=== PATIENT | female | born 1960 | race African-American/Black ===

== ENCOUNTER 2022-08-18 20:57 | Inpatient (IN) | payer BC ==
[2022-08-19] MEDS ORDERED: Acetaminophen 325 MG TAB PO PRN (00:28)
[2022-08-19] MEDS ORDERED: Ondansetron ODT 4 MG TAB PO PRN (00:28)
[2022-08-19] MEDS ORDERED: Nitroglycerin 0.4 MG TAB (25 Tab Bottle) SL PRN (00:28)
[2022-08-19] MEDS ORDERED: Senokot S 8.6-50 MG TAB PO PRN (00:28)
[2022-08-19] MEDS ORDERED: Ondansetron PF 4 MG/2 ML Vial IVP PRN (00:28)
[2022-08-19] MEDS ORDERED: Famotidine 20 MG TAB PO PRN (00:28)
[2022-08-19 01:07] LABS: #Eosinphils 0.2 thou/uL (0.0-0.7); #Lymphocytes 2.3 thou/uL (1.20-3.40); #Monocytes 0.4 thou/uL (0.11-0.59); #Neutrophils 1.8 thou/uL (1.40-6.50); %Basophils 0.8 % (0.0-1.0); %Lymphocytes 47.7 % (21.0-51.0); %Monocytes 8.4 % (0.0-10.0); Hemoglobin 12.4 g/dL (12.0-16.0); Mean Corpuscular Hemoglobin 32.4 pg (27.0-31.0); Mean Corpuscular Volume 95.3 fl (78.0-98.0); Mean Platelet Volume 7.7 fL (7.4-10.4); Platelet Count 207 10x3/uL (130-400); RBC Distribution Width 12.3 % (11.5-14.5); Red Blood Cell (RBC) Count 3.83 mill/uL (4.20-5.40); White Blood Cell (WBC) Count 4.7 10x3/uL (4.8-10.8)
[2022-08-19 01:19] LABS: ALT (SGPT) 18 U/L (8-55); AST (SGOT) 41 U/L (5-34); Albumin 3.7 g/dL (3.4-4.8); Alkaline Phosphatase 68 U/L (40-110); Anion Gap 11 mmol/L (10-20); BUN (Urea Nitrogen) 14 mg/dL (9.8-20.1); Bilirubin, Total 0.3 mg/dL (0.2-1.2); Calc. Creatinine Clearance 81 mL/min (70-130); Carbon Dioxide 31 mmol/L (23-31); Chloride 104 mmol/L (98-107); Estimated GFR 75; Globulin 2.3 g/dL (2.4-3.5); Glucose 87 mg/dL (80-115); Potassium 3.3 mmol/L (3.5-5.1); Sodium 143 mmol/L (136-145)
[2022-08-19 01:30] LABS: Troponin I 6.195 ng/mL (< 0.028)
[2022-08-19] MEDS ORDERED: Potassium Chloride 20 MEQ TAB PO SCH (02:30)
[2022-08-19] MEDS: Aspirin 81 mg Enteric Coated Tablet PO SCH (09:47)
[2022-08-19] MEDS ORDERED: Communication Order-Pharmacy FS SCH (10:15)
[2022-08-19] MEDS ORDERED: Labetalol HCl 100 MG TAB PO SCH (10:30)
[2022-08-19] MEDS ORDERED: Lisinopril 2.5 MG TAB PO SCH (10:30)
[2022-08-19] MEDS: Labetalol HCl 100 MG TAB PO SCH (20:24)
[2022-08-20 04:28] LABS: #Basophils 0.1 thou/uL (0.0-0.2); #Eosinphils 0.3 thou/uL (0.0-0.7); #Lymphocytes 1.8 thou/uL (1.20-3.40); #Monocytes 0.4 thou/uL (0.11-0.59); #Neutrophils 1.4 thou/uL (1.40-6.50); %Basophils 1.4 % (0.0-1.0); %Eosinophils 7.6 % (0.0-10.0); %Lymphocytes 46.3 % (21.0-51.0); %Monocytes 9.5 % (0.0-10.0); %Neutrophils 35.3 % (42.0-75.0); Hemoglobin 12.5 g/dL (12.0-16.0); Mean Corpuscular HGB CONC 32.1 g/dL (32.0-36.0); Mean Corpuscular Hemoglobin 31.2 pg (27.0-31.0); Mean Corpuscular Volume 97.3 fl (78.0-98.0); Mean Platelet Volume 7.7 fL (7.4-10.4); Platelet Count 205 10x3/uL (130-400); RBC Distribution Width 12.4 % (11.5-14.5); White Blood Cell (WBC) Count 3.8 10x3/uL (4.8-10.8)
[2022-08-20 04:52] LABS: Anion Gap 13 mmol/L (10-20); BUN (Urea Nitrogen) 12 mg/dL (9.8-20.1); Calc. Creatinine Clearance 87 mL/min (70-130); Calcium 9.1 mg/dL (7.8-10.44); Carbon Dioxide 24 mmol/L (23-31); Chloride 108 mmol/L (98-107); Cholesterol 94 mg/dl (< 200 Desired); Estimated GFR 82; Glucose 92 mg/dL (80-115); HDL Cholesterol 47 mg/dL (>60 Neg Risk); LDL Cholesterol, Calculated 36 mg/dL; Potassium 3.9 mmol/L (3.5-5.1); Sodium 141 mmol/L (136-145); Triglycerides 55 mg/dL (Less than 150)
[2022-08-20] MEDS: Labetalol HCl 100 MG TAB PO SCH (05:57)
[2022-08-20] MEDS: Aspirin 81 mg Enteric Coated Tablet PO SCH (05:58)
[2022-08-20] MEDS: Sodium Chloride 0.9% 1,000 ML IV SCH ×2 (05:58→15:15)
[2022-08-20] MEDS ORDERED: Lidocaine 1% (PF) 30 ML VIAL ONE (06:07)
[2022-08-20] MEDS ORDERED: Heparin 10,000 UNITS/ 10 ML VIAL ONE (06:07)
[2022-08-20] MEDS ORDERED: Midazolam HCl 2 mg/2 ml Vial ONE ×2 (06:56→12:45)
[2022-08-20] MEDS ORDERED: fentaNYL 50 mcg/mL 1 mL Vial ONE ×2 (06:56→10:36)
[2022-08-20] MEDS ORDERED: Nitroglycerin 2% Ointment 1 INCH/1 GM Packet ONE (07:41)
[2022-08-20] MEDS ORDERED: Heparin 5,000 UNITS/ML VIAL ONE ×2 (08:34→12:57)
[2022-08-20] MEDS ORDERED: Heparin 25,000 units/D5W 500 ML IVPB SCH (08:45)
[2022-08-20] MEDS ORDERED: Heparin 10,000 UNITS/ 10 ML VIAL SLOW IVP SCH ×3 (08:45)
[2022-08-20] MEDS ORDERED: Heparin 25,000 units/D5W 500 ML IV SCH (08:45)
[2022-08-20] MEDS ORDERED: Lisinopril 2.5 MG TAB PO SCH (09:00)
[2022-08-20] MEDS ORDERED: Iopamidol 370 76% 100 ML VIAL ONE (09:36)
[2022-08-20] MEDS ORDERED: Albumin 5% 500 ML ONE (12:29)
[2022-08-20] MEDS ORDERED: Verapamil 5 MG/2 ML VIAL ONE (12:37)
[2022-08-20] MEDS ORDERED: Fentanyl 250 MCG/5 ML VIAL ONE ×2 (12:45→15:10)
[2022-08-20] MEDS ORDERED: Vecuronium 10 MG VIAL ONE (12:57)
[2022-08-20] MEDS ORDERED: Heparin 30,000 units/30 ml VIAL ONE (12:57)
[2022-08-20] MEDS ORDERED: Cardioplegic Soln 1,000 ML BAG ONE (12:57)
[2022-08-20] MEDS ORDERED: Sodium Bicarb 50 MEQ/50 ML VIAL ONE (12:57)
[2022-08-20] MEDS ORDERED: Dexamethasone 20 MG/5 ML VIAL ONE (12:57)
[2022-08-20] MEDS ORDERED: Vancomycin 1 GM VIAL ONE (12:57)
[2022-08-20] MEDS ORDERED: Thrombin 5000 UNITS/5 ML VIAL ONE (12:57)
[2022-08-20] MEDS ORDERED: Lidocaine 2% PF 100 mg/5 ml Syringe ONE (12:57)
[2022-08-20] MEDS ORDERED: PROPOFOL 200 MG/20 ML VIAL ONE (12:57)
[2022-08-20] MEDS ORDERED: Aminocaproic Acid 5 GM/20 ML VIAL ONE (12:57)
[2022-08-20] MEDS ORDERED: Mannitol 12.5 GM/50 ML ONE (12:57)
[2022-08-20] MEDS ORDERED: Potassium Chloride 60 MEQ/30 ML VIAL ONE (12:57)
[2022-08-20] MEDS ORDERED: Magnesium 5 GM/10 ML VIAL ONE (12:57)
[2022-08-20] MEDS ORDERED: Calcium Chloride 1 GM/10 ML Abboject SYRINGE ONE (12:57)
[2022-08-20] MEDS ORDERED: Protamine Sulfate 250 MG/25 ML VIAL ONE (12:57)
[2022-08-20] MEDS ORDERED: Ondansetron PF 4 MG/2 ML Vial ONE (12:57)
[2022-08-20] MEDS ORDERED: Papaverine 60 MG/2 ML VIAL ONE (12:57)
[2022-08-20] MEDS ORDERED: Nitroglycerin 50 MG/250 ML BOT ONE (12:57)
[2022-08-20] MEDS ORDERED: hydrALAZINE 20 MG/ML VIAL SLOW IVP PRN (16:42)
[2022-08-20] MEDS ORDERED: niCARdipine 25 MG in Sodium Chloride 0.9% 250 ML 250 ML IVPB PRN (16:42)
[2022-08-20] MEDS ORDERED: Fentanyl 100 MCG/2 ML VIAL SLOW IVP PRN ×2 (16:42)
[2022-08-20] MEDS ORDERED: Bisacodyl 10 MG SUPP PR PRN (16:42)
[2022-08-20] MEDS ORDERED: DOPamine 400 MG/D5W 250 ML 250 ML IVPB PRN (16:42)
[2022-08-20] MEDS ORDERED: Potassium Chloride 20 MEQ/100 ML PREMIX BAG IVPB PRN (16:42)
[2022-08-20] MEDS ORDERED: Bisacodyl 5 MG TAB PO PRN (16:42)
[2022-08-20] MEDS ORDERED: Nitroglycerin 50 MG/250 ML BOT 250 ML IVPB PRN (16:42)
[2022-08-20] MEDS ORDERED: Guaifenesin DM 100-10/5 ML UDCUP PO PRN (16:42)
[2022-08-20] MEDS ORDERED: Acetaminophen 325 MG TAB PO PRN (16:42)
[2022-08-20] MEDS ORDERED: Mag-Al 1200 mg/1200 mg/30 ML UDCUP PO PRN (16:42)
[2022-08-20] MEDS ORDERED: NOREPINEPHRINE 8 MG/250 ML-D5W 250 ML IVPB PRN (16:42)
[2022-08-20] MEDS ORDERED: Post-Op Insulin Drip Protocol IVPB SCH (16:42)
[2022-08-20] MEDS ORDERED: Ipratropium/Albuterol 3 ML NEB NEB PRN (16:42)
[2022-08-20] MEDS ORDERED: Hetastarch 6% 500 ML 500 ML IVPB PRN (16:42)
[2022-08-20] MEDS ORDERED: Nitroglycerin 50 MG/250 ML BOT 250 ML ONE (17:00)
[2022-08-20 17:05] LABS: ALV-art Gradient 307.775 mmHg (0-20); Actual Bicarbonate (HCO3a) 21.8 mEq/L (22-28); Base Excess (BEa) -1.3 mEq/L (-2.0 to +3.0); CO2 Tension 31.3 mmHg (35.0-45.0); Calcium, Ionized (arterial) 1.11 mmol/L (1.12-1.30); Carboxyhemoglobin (COHb) 0.7 gm% (0.0-3.0); Hematocrit-ABG 32 % (36.0-47.0); Hemoglobin (Hb) 10.8 g/dL (12.0-16.0); O2 Tension (PaO2), arterial 80.9 mmHg (> 80.0); Potassium - ABG Lab 4.11 mmol/L (3.70-5.30); Puncture Site Arterial Line; pH, Arterial 7.461 (7.35-7.45)
[2022-08-20 17:09] LABS: #Eosinphils 0.2 thou/uL (0.0-0.7); #Lymphocytes 1.5 thou/uL (1.20-3.40); #Monocytes 0.3 thou/uL (0.11-0.59); %Basophils 0.2 % (0.0-1.0); %Eosinophils 2.2 % (0.0-10.0); %Lymphocytes 18.7 % (21.0-51.0); %Monocytes 3.6 % (0.0-10.0); %Neutrophils 75.3 % (42.0-75.0); Hemoglobin 10.4 g/dL (12.0-16.0); Mean Corpuscular HGB CONC 34.2 g/dL (32.0-36.0); Mean Corpuscular Hemoglobin 32.7 pg (27.0-31.0); Mean Corpuscular Volume 95.7 fl (78.0-98.0); Mean Platelet Volume 7.8 fL (7.4-10.4); Platelet Count 130 10x3/uL (130-400); RBC Distribution Width 12.4 % (11.5-14.5); Red Blood Cell (RBC) Count 3.19 mill/uL (4.20-5.40)
[2022-08-20] MEDS ORDERED: HUMULIN R 100 UNITS in Sodium Chloride 0.9% 100 ML IVPB SCH (17:15)
[2022-08-20] MEDS ORDERED: Insulin Regular 300 UNITS/3 ML VIAL SC PRN (17:15)
[2022-08-20] MEDS ORDERED: Dextrose 50% Abboject 50 ML SYRINGE SLOW IVP PRN (17:15)
[2022-08-20] MEDS ORDERED: Dextrose 5% in Water 1,000 ML IV PRN (17:15)
[2022-08-20 17:23] LABS: INR-International Normal Ratio 1.2; Prothrombin Time 15.9 sec (12.0-14.7)
[2022-08-20 17:24] LABS: PTT 28.5 sec (22.9-36.1)
[2022-08-20] MEDS: Lactated Ringer's 1,000 ML IV SCH (17:25)
[2022-08-20 17:27] LABS: Anion Gap 13 mmol/L (10-20); BUN (Urea Nitrogen) 8 mg/dL (9.8-20.1); Calc. Creatinine Clearance 93 mL/min (70-130); Carbon Dioxide 20 mmol/L (23-31); Chloride 114 mmol/L (98-107); Estimated GFR 89; Glucose 126 mg/dL (80-115); Potassium 4.3 mmol/L (3.5-5.1); Sodium 143 mmol/L (136-145)
[2022-08-20] MEDS: Ketorolac Tromethamine 30 MG/ML VIAL IVP SCH ×2 (17:29→22:55)
[2022-08-20] MEDS: Morphine 2 MG/ML VIAL SLOW IVP PRN ×2 (19:28→23:15)
[2022-08-20] MEDS ORDERED: Acetaminophen 650 MG Suppository PR PRN (21:44)
[2022-08-20] MEDS: CEFAZOLIN 2 GM in Sodium Chloride 0.9% 100 ML IVPB SCH (22:09)
[2022-08-20] MEDS: Famotidine/PF 20 mg/2ml Vial SLOW IVP SCH (22:10)
[2022-08-20 22:40] LABS: Actual Bicarbonate (HCO3a) 19.5 mEq/L (22-28); CO2 Tension 30.9 mmHg (35.0-45.0); Calcium, Ionized (arterial) 1.14 mmol/L (1.12-1.30); Carboxyhemoglobin (COHb) 0.7 gm% (0.0-3.0); Hematocrit-ABG 35 % (36.0-47.0); O2 Tension (PaO2), arterial 93.1 mmHg (> 80.0); Potassium - ABG Lab 4.15 mmol/L (3.70-5.30); pH, Arterial 7.418 (7.35-7.45)
[2022-08-20 22:42] LABS: ALV-art Gradient 153.475 mmHg (0-20); Puncture Site Arterial Line
[2022-08-20 23:01] LABS: Hemoglobin 11.4 g/dL (12.0-16.0)
[2022-08-20 23:17] LABS: Potassium 4.3 mmol/L (3.5-5.1)
[2022-08-21] MEDS: Morphine 2 MG/ML VIAL SLOW IVP PRN ×3 (00:17→05:23)
[2022-08-21] MEDS: Rosuvastatin 20 MG TAB PO SCH ×2 (00:19→21:08)
[2022-08-21] MEDS: fentaNYL 50 mcg/mL 1 mL Vial SLOW IVP PRN (02:42)
[2022-08-21] MEDS ORDERED: fentaNYL 50 mcg/mL 1 mL Vial SLOW IVP PRN (02:45)
[2022-08-21 04:46] LABS: #Lymphocytes 0.7 thou/uL (1.20-3.40); #Monocytes 0.6 thou/uL (0.11-0.59); #Neutrophils 7.3 thou/uL (1.40-6.50); %Eosinophils 0.1 % (0.0-10.0); %Lymphocytes 8.5 % (21.0-51.0); %Monocytes 6.6 % (0.0-10.0); %Neutrophils 84.8 % (42.0-75.0); Hemoglobin 11.9 g/dL (12.0-16.0); Mean Corpuscular HGB CONC 33.4 g/dL (32.0-36.0); Mean Corpuscular Hemoglobin 32.5 pg (27.0-31.0); Mean Corpuscular Volume 97.5 fl (78.0-98.0); Mean Platelet Volume 8.3 fL (7.4-10.4); Platelet Count 172 10x3/uL (130-400); RBC Distribution Width 12.8 % (11.5-14.5); Red Blood Cell (RBC) Count 3.64 mill/uL (4.20-5.40); White Blood Cell (WBC) Count 8.6 10x3/uL (4.8-10.8)
[2022-08-21 04:56] LABS: Anion Gap 12 mmol/L (10-20); BUN (Urea Nitrogen) 10 mg/dL (9.8-20.1); Calc. Creatinine Clearance 88 mL/min (70-130); Calcium 8.5 mg/dL (7.8-10.44); Carbon Dioxide 20 mmol/L (23-31); Chloride 114 mmol/L (98-107); Estimated GFR 83; Glucose 113 mg/dL (80-115); Potassium 4.3 mmol/L (3.5-5.1); Sodium 142 mmol/L (136-145)
[2022-08-21] MEDS: CEFAZOLIN 2 GM in Sodium Chloride 0.9% 100 ML IVPB SCH ×2 (05:22→14:22)
[2022-08-21] MEDS: Ketorolac Tromethamine 30 MG/ML VIAL IVP SCH ×4 (05:22→23:51)
[2022-08-21 06:05] VITALS: BMI 32.2
[2022-08-21] MEDS: Lactated Ringer's 1,000 ML IV SCH (06:44)
[2022-08-21] MEDS: Aspirin Chewable 81 MG TAB PO SCH (08:03)
[2022-08-21] MEDS: Metoprolol Tartrate 25 MG TAB PO SCH ×2 (08:03→21:09)
[2022-08-21] MEDS: Magnesium 2 GM/50 ML(in water) 2 GM in Premix Bag 1 BAG IVPB SCH (08:03)
[2022-08-21] MEDS: Polyethylene Glycol 3350 17 GM Packet PO SCH (08:04)
[2022-08-21] MEDS: Famotidine/PF 20 mg/2ml Vial SLOW IVP SCH ×2 (08:04→21:10)
[2022-08-21] MEDS: traMADol HCl 50 MG TAB PO PRN ×2 (09:21→21:09)
[2022-08-21] MEDS: Ondansetron PF 4 MG/2 ML Vial IVP PRN (11:16)
[2022-08-22] MEDS: Acetaminophen 325 MG TAB PO PRN ×2 (00:25→06:00)
[2022-08-22] MEDS: traMADol HCl 50 MG TAB PO PRN (04:02)
[2022-08-22 04:35] LABS: Hemoglobin 9.8 g/dL (12.0-16.0); Mean Corpuscular HGB CONC 32.3 g/dL (32.0-36.0); Mean Corpuscular Hemoglobin 31.7 pg (27.0-31.0); Mean Corpuscular Volume 98.1 fl (78.0-98.0); Mean Platelet Volume 8.1 fL (7.4-10.4); Platelet Count 157 10x3/uL (130-400); RBC Distribution Width 12.9 % (11.5-14.5); White Blood Cell (WBC) Count 9.4 10x3/uL (4.8-10.8)
[2022-08-22 04:52] LABS: Anion Gap 11 mmol/L (10-20); BUN (Urea Nitrogen) 20 mg/dL (9.8-20.1); Calc. Creatinine Clearance 76 mL/min (70-130); Calcium 8.4 mg/dL (7.8-10.44); Carbon Dioxide 24 mmol/L (23-31); Chloride 110 mmol/L (98-107); Estimated GFR 64; Glucose 128 mg/dL (80-115); Potassium 4.7 mmol/L (3.5-5.1); Sodium 140 mmol/L (136-145)
[2022-08-22] MEDS: Ketorolac Tromethamine 30 MG/ML VIAL IVP SCH ×3 (05:56→17:43)
[2022-08-22 07:03] LABS: Band 1 % (5-11); Eosinophils 1 % (0-10); Lymphocytes 23 % (21-51); MDiff Complete? YES; Macrocytosis SLIGHT = 6-15 cells (100X) (0-5/hpf); Monocytes 5 % (0-10); Neutrophil 70 % (42-75); Platelet Morphology Comment Appears Adequate
[2022-08-22] MEDS: Metoprolol Tartrate 25 MG TAB PO SCH ×2 (08:17→20:43)
[2022-08-22] MEDS: Famotidine/PF 20 mg/2ml Vial SLOW IVP SCH (08:21)
[2022-08-22] MEDS: Polyethylene Glycol 3350 17 GM Packet PO SCH (08:21)
[2022-08-22] MEDS: Aspirin Chewable 81 MG TAB PO SCH (08:21)
[2022-08-22] MEDS: Magnesium 2 GM/50 ML(in water) 2 GM in Premix Bag 1 BAG IVPB SCH (08:21)
[2022-08-22] MEDS: fentaNYL 50 mcg/mL 1 mL Vial SLOW IVP PRN (08:40)
[2022-08-22] MEDS ORDERED: Nitroglycerin 0.4 MG TAB (25 Tab Bottle) SL PRN (11:05)
[2022-08-22] MEDS: Ondansetron PF 4 MG/2 ML Vial IVP PRN (12:31)
[2022-08-22] MEDS: Rosuvastatin 20 MG TAB PO SCH (20:43)
[2022-08-23] MEDS: Ketorolac Tromethamine 30 MG/ML VIAL IVP SCH ×4 (00:19→18:15)
[2022-08-23] MEDS: Potassium Chloride 10 MEQ TAB PO SCH (08:31)
[2022-08-23] MEDS: Furosemide 40 MG TAB PO SCH (08:31)
[2022-08-23] MEDS: Polyethylene Glycol 3350 17 GM Packet PO SCH (08:31)
[2022-08-23] MEDS: Aspirin Chewable 81 MG TAB PO SCH (08:31)
[2022-08-23] MEDS: Metoprolol Tartrate 25 MG TAB PO SCH ×2 (08:31→20:45)
[2022-08-23] MEDS: Rosuvastatin 20 MG TAB PO SCH (20:45)
[2022-08-23] MEDS: traMADol HCl 50 MG TAB PO PRN (20:47)
[2022-08-24] MEDS: Aspirin Chewable 81 MG TAB PO SCH (09:51)
[2022-08-24] MEDS: Potassium Chloride 10 MEQ TAB PO SCH (09:51)
[2022-08-24] MEDS: Polyethylene Glycol 3350 17 GM Packet PO SCH (09:51)
[2022-08-24] MEDS: Metoprolol Tartrate 25 MG TAB PO SCH (09:51)
[2022-08-24] MEDS: Furosemide 40 MG TAB PO SCH (09:51)
[2022-08-24 11:40] VITALS: TEMP 97.9
[2022-08-24 14:15] VITALS: BP 148/82
[2022-08-24 16:31] LABS: Actual Bicarbonate (HCO3a) 22.2 mEq/L (22-28); Analyzer IN Cardio OR; Base Excess (BEa) -0.9 mEq/L (-2.0 to +3.0); CO2 Tension 31.5 mmHg (35.0-45.0); Calcium, Ionized (arterial) 1.06 mmol/L (1.12-1.30); Carboxyhemoglobin (COHb) 0.1 gm% (0.0-3.0); Hematocrit-ABG 33 % (36.0-47.0); Hemoglobin (Hb) 11.3 g/dL (12.0-16.0); O2 Tension (PaO2), arterial 332.7 mmHg (> 80.0); Potassium - ABG Lab 3.51 mmol/L (3.70-5.30); pH, Arterial 7.465 (7.35-7.45)
[2022-08-24 16:32] LABS: Actual Bicarbonate (HCO3v) 23.3 mEq/L (22-28); Analyzer IN Cardio OR; Base Excess -0.8 mEq/L (-2.0 to +3.0); Chloride (VBG) 108 mmol/L (98-106); Hematocrit-VBG 23 % (36.0-47.0); Hemoglobin (Hb) 7.9 g/dL (11.7-16.0); Potassium (VBG) 4.29 mmol/L (3.70-5.30); pH (venous) 7.431 (7.32-7.43)
[2022-08-24 16:32] LABS: Actual Bicarbonate (HCO3a) 20.3 mEq/L (22-28); Analyzer IN Cardio OR; Base Excess (BEa) -2.9 mEq/L (-2.0 to +3.0); CO2 Tension 29.9 mmHg (35.0-45.0); Calcium, Ionized (arterial) 1.04 mmol/L (1.12-1.30); Carboxyhemoglobin (COHb) 0.3 gm% (0.0-3.0); Hematocrit-ABG 31 % (36.0-47.0); Hemoglobin (Hb) 10.6 g/dL (12.0-16.0); O2 Tension (PaO2), arterial 322.2 mmHg (> 80.0); Potassium - ABG Lab 3.54 mmol/L (3.70-5.30); pH, Arterial 7.449 (7.35-7.45)
[2022-08-24 16:32] LABS: Analyzer IN Cardio OR; Base Excess (BEa) -1.1 mEq/L (-2.0 to +3.0); CO2 Tension 29.9 mmHg (35.0-45.0); Calcium, Ionized (arterial) 0.96 mmol/L (1.12-1.30); Carboxyhemoglobin (COHb) 0.7 gm% (0.0-3.0); Hematocrit-ABG 23 % (36.0-47.0); Hemoglobin (Hb) 7.7 g/dL (12.0-16.0); O2 Tension (PaO2), arterial 413.3 mmHg (> 80.0); Potassium - ABG Lab 4.35 mmol/L (3.70-5.30); pH, Arterial 7.484 (7.35-7.45)
[2022-08-24 16:34] LABS: Analyzer IN Cardio OR; Base Excess (BEa) -0.5 mEq/L (-2.0 to +3.0); CO2 Tension 32.7 mmHg (35.0-45.0); Calcium, Ionized (arterial) 0.99 mmol/L (1.12-1.30); Carboxyhemoglobin (COHb) 0.1 gm% (0.0-3.0); Hematocrit-ABG 22 % (36.0-47.0); Hemoglobin (Hb) 7.6 g/dL (12.0-16.0); O2 Tension (PaO2), arterial 349.8 mmHg (> 80.0); pH, Arterial 7.465 (7.35-7.45)
[2022-08-24 16:36] LABS: Actual Bicarbonate (HCO3a) 22.9 mEq/L (22-28); Analyzer IN Cardio OR; Base Excess (BEa) -1.3 mEq/L (-2.0 to +3.0); CO2 Tension 36.5 mmHg (35.0-45.0); Calcium, Ionized (arterial) 1.09 mmol/L (1.12-1.30); Carboxyhemoglobin (COHb) 0.3 gm% (0.0-3.0); Hematocrit-ABG 30 % (36.0-47.0); Hemoglobin (Hb) 10.2 g/dL (12.0-16.0); O2 Tension (PaO2), arterial 175.8 mmHg (> 80.0); Potassium - ABG Lab 4.15 mmol/L (3.70-5.30); pH, Arterial 7.416 (7.35-7.45)
[2022-08-24 16:39] LABS: Puncture Site Arterial Line
[2022-08-24 16:40] LABS: Puncture Site Arterial Line
[2022-08-24 16:40] LABS: Puncture Site Arterial Line
[2022-08-24 16:41] LABS: Puncture Site Arterial Line
[2022-08-24 16:42] LABS: Puncture Site Arterial Line
== END 2022-08-24 14:41 | disposition home or self-care (01) | DRG 233 ==
LOC: 2SW 23:51 → OBSVTOIN 08-19 09:53 → CCU 08-20 09:21 → 2NO 08-22 10:47
PROVIDERS: ADMIT Student in an Organized Health Care Education/Training Program; ATTEND Internal Medicine
PROC: B2151ZZ Fluoroscopy of Left Heart using Low Osmolar Contrast (ICD-10-PCS; 2022-08-19)
PROC: B2111ZZ Fluoroscopy of Multiple Coronary Arteries using Low Osmolar Contrast (ICD-10-PCS; 2022-08-19)
PROC: 4A023N7 Measurement of Cardiac Sampling and Pressure, Left Heart, Percutaneous Approach (ICD-10-PCS; principal; 2022-08-20)
PROC: 02100Z9 Bypass Coronary Artery, One Artery from Left Internal Mammary, Open Approach (ICD-10-PCS; 2022-08-20)
PROC: 021109W Bypass Coronary Artery, Two Arteries from Aorta with Autologous Venous Tissue, Open Approach (ICD-10-PCS; 2022-08-20)
PROC: 06BQ0ZZ Excision of Left Saphenous Vein, Open Approach (ICD-10-PCS; 2022-08-20)
PROC: 5A1945Z Respiratory Ventilation, 24-96 Consecutive Hours (ICD-10-PCS; 2022-08-20)
PROC: 5A1221Z Performance of Cardiac Output, Continuous (ICD-10-PCS; 2022-08-20)
PROC: 02L70ZK Occlusion of Left Atrial Appendage, Open Approach (ICD-10-PCS; 2022-08-20)
DX: I21.4 Non-ST elevation (NSTEMI) myocardial infarction (principal); J96.00 Acute respiratory failure, unspecified whether with hypoxia or hypercapnia; E78.5 Hyperlipidemia, unspecified; I10 Essential (primary) hypertension; I25.110 Atherosclerotic heart disease of native coronary artery with unstable angina pectoris; E87.6 Hypokalemia; Z79.82 Long term (current) use of aspirin; Z79.899 Other long term (current) drug therapy; I25.2 Old myocardial infarction
CPT/HCPCS: 36415; 36416; 36430; 71045; 80048; 80053; 80061; 82805; 84484; 85025; 85610; 85730; 86850; 86900; 86901; 93005; 93010; 93306; 93458; 93798; 94002; 96372; 99152; 99153; C1751; C1776; C1894; G0378; J0360; J1100; J1644; J1650; J1885; J2001; J2150; J2250; J2272; J2405; J2440; J2704; J2720; J3010; J3370; J3475; J3480; J3490; J7050; J7120; P9045; Q9967; S0017; S0028